=== PATIENT | female | born 1995 | race African-American/Black ===

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

== ENCOUNTER 2018-05-06 11:35 | Emergency (ER) | payer OTHER ==
[2018-05-06] MEDS: diphenhydrAMINE 25 MG CAP PO (12:13)
== END 2018-05-06 12:19 | disposition home or self-care (01) ==
LOC: M ED 11:35
DX: H00.011 Hordeolum externum right upper eyelid (principal)
CPT/HCPCS: 99282